=== PATIENT | female | born 2000 | race Caucasian/White ===

== ENCOUNTER 2018-12-30 23:25 | Inpatient (IN) ==
[2018-12-31] MEDS ORDERED: MEPERIDINE 50 MG/1 ML VIAL IV PRN (00:21)
[2018-12-31] MEDS ORDERED: ONDANSETRON 4 MG/2 ML VIAL IV PRN (00:21)
[2018-12-31] MEDS ORDERED: LACTATED RINGERS 1,000 ML IV SCH ×2 (00:30→13:00)
[2018-12-31 00:42] LABS: Basophils % 0.3 % (0.0-0.8); Eosinophils # 0.1 10*3/uL (0.0-0.87); Eosinophils % 0.5 % (0.00-10.9); Hematocrit 32.4 VOL% (35.7-47.0); Hemoglobin 10.1 GM/DL (12.0-16.0); Immature Granulocytes % 0.8 %; Lymphocytes # 2.5 10*3/uL (1.4-4.0); Lymphocytes % 20.9 % (21.3-54.2); Mean Corpuscular HGB Conc 31.2 GM/DL (32-36); Mean Corpuscular Volume 79.8 FL (87-102); Mean Platelet Volume 10.8 FL (9.6-12.0); Monocytes % 6.8 % (1.7-12.7); NRBC # 0.02 10*3/uL; Neutrophils % 70.7 % (38.7-73.9); Platelet Count 268 T/CUMM (130-400); Red Blood Count 4.06 MC/CUMM (3.8-5.5); Red Cell Distribution Width 15.2 % (9.3-17.3)
[2018-12-31 01:08] LABS: Alanine Aminotransferase 67 U/L (13-56); Albumin 2.7 G/DL (3.4-5.0); Alkaline Phosphatase 208 U/L (45-117); Aspartate Amino Transferase 56 U/L (0-37); Bilirubin,Total < 0.39 MG/DL (0.2-1.0); Blood Urea Nitrogen 10 MG/DL (7-18); Glucose 83 MG/DL (74-106); Osmolality,Calculated 274.5 MOS/KG (273-304); Total Protein 7.3 G/DL (6.4-8.3)
[2018-12-31] MEDS ORDERED: NALOXONE 0.4 MG/ML VIAL IV PRN (12:37)
[2018-12-31] MEDS ORDERED: LACTATED RINGERS 1,000 ML IV ONE (12:37)
[2018-12-31] MEDS ORDERED: CITRIC ACID/SODIUM CITRATE 30 ML UDCUP PO ONE (12:37)
[2018-12-31] MEDS ORDERED: diphenhydrAMINE 50 MG/1 ML VIAL IV PRN ×2 (12:37)
[2018-12-31] MEDS ORDERED: hydrOXYzine HCL 25 MG/1 ML VIAL IM PRN (12:37)
[2018-12-31] MEDS ORDERED: ePHEDrine 50 MG/ML AMP IV PRN ×2 (12:37)
[2018-12-31] MEDS ORDERED: PROMETHAZINE 25 MG/1 ML VIAL IM ONE (12:37)
[2018-12-31] MEDS ORDERED: FAMOTIDINE 20 MG/2 ML VIAL IV ONE (12:37)
[2018-12-31] MEDS ORDERED: OXYTOCIN/LR 20 UNIT/1,000 ML BAG IV SCH (14:00)
[2018-12-31 15:51] LABS: Apearance,Urine CLEAR (Clear); Bilirubin,Urine Negative (Negative); Blood, Urine Negative (Negative); Glucose,Urine (UA) Negative (Negative); Ketones,Urine 20 mg/dL (Negative); Mucus,Urine Occasional /LPF (Occasional); Nitrite,Urine Negative (Negative); Protein,Urine Negative; RBC,Urine 1 /HPF (0-4); Squamous Epithelial Cell,Urine Occasional /HPF (0-10); Transitional Epi Cells,Urine Occasional /HPF (<1); Urine Color Yellow (Yellow); Urine Specific Gravity 1.024 (1.001-1.035); Urine Urobilinogen < 2.0 EU/DL (0.2-1.0); WBC,Urine 1 /HPF (0-6)
[2018-12-31] MEDS: fentaNYL 2 MCG/ROPIV 0.2% EPID 100 ML EPIDURAL SCH (20:42)
[2019-01-01] MEDS ORDERED: ACETAMINOPHEN 500 MG TABLET PO ONE (00:58)
[2019-01-01] MEDS ORDERED: fentaNYL 100 MCG/2 ML VIAL ONE (02:51)
[2019-01-01] MEDS: fentaNYL 2 MCG/ROPIV 0.2% EPID 100 ML EPIDURAL SCH (03:06)
[2019-01-01] MEDS ORDERED: AMPICILLIN 2,000 MG VIAL ONE (04:20)
[2019-01-01] MEDS ORDERED: SODIUM CHLORIDE 0.9% 100 ML IV ONE (04:20)
[2019-01-01] MEDS ORDERED: AMPICILLIN INJ 2,000 MG in SODIUM CHLORIDE 0.9% 100 ML IV ONE (04:30)
[2019-01-01] MEDS ORDERED: TERBUTALINE 1 MG/1 ML VIAL SUBCUT ONE (04:38)
[2019-01-01] MEDS ORDERED: OXYTOCIN 10 UNIT/ML VIAL IM ONE (06:44)
[2019-01-01] MEDS ORDERED: OXYTOCIN/LR 30 UNIT/1,000 ML BAG IV ONE (06:44)
[2019-01-01] MEDS ORDERED: CITRIC ACID/SODIUM CITRATE 30 ML UDCUP PO ONE (07:00)
[2019-01-01] MEDS ORDERED: FAMOTIDINE 20 MG/2 ML VIAL IV ONE (07:00)
[2019-01-01] MEDS ORDERED: ceFAZolin 2,000 MG in PREMIX 1 EACH IV ONE (07:00)
[2019-01-01] MEDS ORDERED: miSOPROStol 200 MCG TABLET ONE (07:17)
[2019-01-01] MEDS ORDERED: OXYTOCIN/LR 20 UNIT/1,000 ML BAG IV ONE ×2 (07:17→09:16)
[2019-01-01] MEDS ORDERED: TRANEXAMIC ACID 1,000 MG/10 ML VIAL ONE (07:17)
[2019-01-01] MEDS ORDERED: METHYLERGONOVINE 0.2 MG/1 ML AMP ONE (07:18)
[2019-01-01] MEDS ORDERED: CARBOPROST TROMETHAMINE 250 MCG/ML AMP IM ONE (07:18)
[2019-01-01] MEDS ORDERED: AMPICILLIN INJ 1,000 MG in SODIUM CHLORIDE 0.9% 100 ML IV SCH (08:30)
[2019-01-01] MEDS ORDERED: ACETAMINOPHEN 325 MG TABLET PO PRN (09:16)
[2019-01-01] MEDS ORDERED: IBUPROFEN 800 MG TABLET PO PRN (09:16)
[2019-01-01] MEDS ORDERED: ONDANSETRON 4 MG/2 ML VIAL IV PRN ×2 (09:16→09:22)
[2019-01-01] MEDS ORDERED: MAGNESIUM HYDROXIDE SUSP 30 ML UDCUP PO PRN (09:16)
[2019-01-01] MEDS ORDERED: RHO(D) IMMUNE GLOBULIN 300 MCG SYRINGE IM ONE (09:16)
[2019-01-01] MEDS ORDERED: diphenhydrAMINE 50 MG/1 ML VIAL IV PRN (09:22)
[2019-01-01] MEDS ORDERED: hydrOXYzine HCL 25 MG/1 ML VIAL IM PRN (09:22)
[2019-01-01] MEDS ORDERED: LACTATED RINGERS 1,000 ML IV SCH ×2 (09:30)
[2019-01-01] MEDS ORDERED: ceFAZolin 1,000 MG in SYRINGE 1 EACH IV SCH (09:30)
[2019-01-01] MEDS ORDERED: SODIUM CHLORIDE 0.9% 1,000 ML IV SCH (09:30)
[2019-01-01] MEDS: HYDROmorphone 2 MG/1 ML VIAL IV PRN ×2 (09:37→17:18)
[2019-01-01] MEDS ORDERED: MORPHINE 10 MG/10 ML VIAL ONE (10:53)
[2019-01-01] MEDS ORDERED: SODIUM BICARBONATE 2.4 MEQ/5 ML VIAL ONE (10:53)
[2019-01-01] MEDS ORDERED: ONDANSETRON 4 MG/2 ML VIAL ONE (10:53)
[2019-01-01] MEDS ORDERED: LACTATED RINGERS 2,000 ML IV ONE (10:54)
[2019-01-01] MEDS ORDERED: LIDOCAINE MPF 2% /EPI 20 ML VIAL ONE (10:54)
[2019-01-01] MEDS ORDERED: PHENYLEPHRINE 1 MG/10 ML SYRINGE IV ONE (10:54)
[2019-01-01] MEDS ORDERED: SODIUM CHLORIDE 0.9% 50 ML IV ONE (16:29)
[2019-01-01] MEDS: ceFAZolin 1,000 MG in SYRINGE 1 EACH IV SCH (16:32)
[2019-01-01 16:45] LABS: Red Blood Count 3.78 MC/CUMM (3.8-5.5); White Blood Count 22.5 T/CUMM (4-12)
[2019-01-01 16:46] LABS: Basophils % 0.2 % (0.0-0.8); Hematocrit 30.2 VOL% (35.7-47.0); Hemoglobin 9.4 GM/DL (12.0-16.0); Lymphocytes % 4.7 % (21.3-54.2); Mean Corpuscular HGB Conc 31.1 GM/DL (32-36); Mean Corpuscular Volume 79.9 FL (87-102); Mean Platelet Volume 11.3 FL (9.6-12.0); Monocytes % 5.3 % (1.7-12.7); Neutrophils % 89.1 % (38.7-73.9); Platelet Count 220 T/CUMM (130-400); Red Cell Distribution Width 15.5 % (9.3-17.3)
[2019-01-01 16:47] LABS: Basophils # 0.1 10*3/uL (0.0-0.2); Immature Granulocytes % 0.7 %; Lymphocytes # 1.1 10*3/uL (1.4-4.0)
[2019-01-01 17:11] LABS: Band Neutrophils 7 % (0-10); Hypochromasia 1+; Lymphocytes 4 % (20-55); Segmented Neutrophils 82 % (50-85); Total Cells Counted 100
[2019-01-01 17:12] LABS: Anisocytosis 1+; Platelet Estimate Adequate
[2019-01-01] MEDS: FERROUS SULFATE 325 MG TABLET PO SCH (20:40)
[2019-01-01] MEDS: DOCUSATE SODIUM 100 MG CAPSULE PO SCH (20:40)
[2019-01-02] MEDS: ceFAZolin 1,000 MG in SYRINGE 1 EACH IV SCH (00:14)
[2019-01-02] MEDS: IBUPROFEN 800 MG TABLET PO PRN ×3 (03:45→17:59)
[2019-01-02] MEDS: SIMETHICONE CHEW 80 MG TABLET PO PRN ×2 (04:16→21:12)
[2019-01-02 05:32] LABS: Basophils # 0.1 10*3/uL (0.0-0.2); Basophils % 0.3 % (0.0-0.8); Eosinophils # 0.1 10*3/uL (0.0-0.87); Eosinophils % 0.5 % (0.00-10.9); Hematocrit 26.1 VOL% (35.7-47.0); Hemoglobin 8.2 GM/DL (12.0-16.0); Immature Granulocytes % 0.8 %; Immature Granulocytes Absolute 0.13 #; Lymphocytes # 1.8 10*3/uL (1.4-4.0); Lymphocytes % 10.7 % (21.3-54.2); Mean Corpuscular HGB Conc 31.4 GM/DL (32-36); Mean Corpuscular Volume 79.6 FL (87-102); Monocytes % 7.6 % (1.7-12.7); Neutrophils % 80.1 % (38.7-73.9); Platelet Count 207 T/CUMM (130-400); Red Blood Count 3.28 MC/CUMM (3.8-5.5); Red Cell Distribution Width 15.5 % (9.3-17.3); White Blood Count 17.1 T/CUMM (4-12)
[2019-01-02 05:53] LABS: Platelet Estimate Decreased; Polychromasia Few
[2019-01-02] MEDS: MULTIVITAMIN (PRENATAL) TABLET PO SCH (08:29)
[2019-01-02] MEDS: FERROUS SULFATE 325 MG TABLET PO SCH ×2 (08:29→21:11)
[2019-01-02] MEDS: METOCLOPRAMIDE 10 MG TABLET PO SCH ×2 (08:29→16:04)
[2019-01-02] MEDS: DOCUSATE SODIUM 100 MG CAPSULE PO SCH ×2 (08:29→21:11)
[2019-01-02] MEDS: MAGNESIUM HYDROXIDE SUSP 30 ML UDCUP PO SCH ×2 (08:31→21:12)
[2019-01-02] MEDS: FUROSEMIDE 40 MG/4 ML VIAL IV SCH ×2 (12:20→17:55)
[2019-01-03] MEDS: METOCLOPRAMIDE 10 MG TABLET PO SCH ×2 (00:14→09:02)
[2019-01-03] MEDS: IBUPROFEN 800 MG TABLET PO PRN ×2 (00:14→05:53)
[2019-01-03] MEDS: FUROSEMIDE 40 MG/4 ML VIAL IV SCH ×2 (00:22→05:55)
[2019-01-03] MEDS: DOCUSATE SODIUM 100 MG CAPSULE PO SCH (09:02)
[2019-01-03] MEDS: FERROUS SULFATE 325 MG TABLET PO SCH (09:03)
[2019-01-03] MEDS: MULTIVITAMIN (PRENATAL) TABLET PO SCH (09:03)
[2019-01-03] MEDS: MAGNESIUM HYDROXIDE SUSP 30 ML UDCUP PO SCH (09:15)
[2019-01-03] MEDS ORDERED: FUROSEMIDE 40 MG/4 ML VIAL IV ONE (12:00)
[2019-01-03 13:51] VITALS: BP 133/67
== END 2019-01-03 16:00 | disposition home or self-care (01) | DRG 787 ==
LOC: N.LDOUT 23:25 → N.LD 12-31 00:06 → N.OB 01-01 12:20
PROVIDERS: ADMIT Obstetrics & Gynecology; ATTEND Obstetrics & Gynecology
PROC: LDCSECT (ICD-10-PCS; 2019-01-01 07:30)

== ENCOUNTER 2021-04-04 04:09 | Inpatient (IN) ==
[2021-04-04 04:45] LABS: Bilirubin,Urine Negative (Negative); Blood, Urine Negative (Negative); Glucose,Urine (UA) Negative (Negative); Ketones,Urine Negative (Negative); Mucus,Urine Occasional /LPF (Occasional); Nitrite,Urine Negative (Negative); Protein,Urine Negative; RBC,Urine <1 /HPF (0-4); Squamous Epithelial Cell,Urine Occasional /HPF (0-10); Urine Appearance CLEAR (Clear); Urine Color Yellow (Yellow); Urine Specific Gravity 1.018 (1.001-1.035); Urine Urobilinogen < 2.0 EU/DL (<2.0)
[2021-04-04] MEDS ORDERED: BUTORPHANOL 2 MG/ML VIAL IV PRN (07:20)
[2021-04-04] MEDS ORDERED: MEPERIDINE 50 MG/1 ML VIAL IV PRN (07:20)
[2021-04-04] MEDS ORDERED: LIDOCAINE 1% 50 ML VIAL MISC INJ ONE (07:20)
[2021-04-04] MEDS ORDERED: ONDANSETRON 4 MG/2 ML VIAL IV PRN (07:20)
[2021-04-04] MEDS ORDERED: FAMOTIDINE 20 MG/2 ML VIAL IV ONE (07:25)
[2021-04-04] MEDS ORDERED: LACTATED RINGERS 1,000 ML IV ONE (07:25)
[2021-04-04] MEDS ORDERED: NALOXONE 0.4 MG/ML VIAL IV PRN (07:25)
[2021-04-04] MEDS ORDERED: CITRIC ACID/SODIUM CITRATE 30 ML UDCUP PO ONE (07:25)
[2021-04-04] MEDS ORDERED: hydrOXYzine HCL 25 MG/1 ML VIAL IM PRN (07:25)
[2021-04-04] MEDS ORDERED: diphenhydrAMINE 50 MG/1 ML VIAL IV PRN ×2 (07:25)
[2021-04-04] MEDS ORDERED: PROMETHAZINE 25 MG/1 ML VIAL IM ONE (07:25)
[2021-04-04] MEDS ORDERED: ePHEDrine 50 MG/ML VIAL IV PRN (07:25)
[2021-04-04 08:09] LABS: Basophils % 0.2 % (0.0-0.8); Eosinophils % 0.1 % (0.00-10.9); Hematocrit 34.7 VOL% (35.7-47.0); Hemoglobin 10.3 GM/DL (12.0-16.0); Lymphocytes # 1.1 10*3/uL (1.4-4.0); Lymphocytes % 10.4 % (21.3-54.2); Mean Corpuscular HGB Conc 29.7 GM/DL (32-36); Mean Corpuscular Volume 75.3 FL (87-102); Mean Platelet Volume 10.9 FL (9.6-12.0); Monocytes % 4.3 % (1.7-12.7); Platelet Count 295 T/CUMM (130-400); Red Blood Count 4.61 MC/CUMM (3.8-5.5); Red Cell Distribution Width 16.2 % (9.3-17.3); White Blood Count 10.3 T/CUMM (4-12)
[2021-04-04] MEDS: LACTATED RINGERS 1,000 ML IV SCH ×2 (08:26→14:23)
[2021-04-04 08:31] LABS: Albumin 2.6 G/DL (3.4-5.0); Bilirubin,Total 0.5 MG/DL (0.20-1.00); Calcium 8.7 MG/DL (8.5-10.1); Osmolality,Calculated 273.7 MOS/KG (273-304); Potassium 4.1 MMOL/L (3.5-5.1); Total Protein 7.4 G/DL (6.4-8.2)
[2021-04-04] MEDS: fentaNYL 2 MCG/ROPIV 0.2% EPID 100 ML EPIDURAL SCH ×2 (08:52→16:25)
[2021-04-04 10:12] LABS: Bacteria,Urine Occasional /HPF (Few); Bilirubin,Urine Negative (Negative); Blood, Urine Negative (Negative); Glucose,Urine (UA) Negative (Negative); Ketones,Urine 5 mg/dL (Negative); Mucus,Urine Occasional /LPF (Occasional); Nitrite,Urine Negative (Negative); Protein,Urine 30 MG/DL; RBC,Urine 1 /HPF (0-4); Squamous Epithelial Cell,Urine Occasional /HPF (0-10); Urine Appearance CLEAR (Clear); Urine Color Yellow (Yellow); Urine Specific Gravity 1.023 (1.001-1.035); Urine Urobilinogen < 2.0 EU/DL (<2.0)
[2021-04-04] MEDS ORDERED: diphenhydrAMINE 50 MG/1 ML VIAL IV ONE (13:16)
[2021-04-04] MEDS ORDERED: TRANEXAMIC ACID 1,000 MG/10 ML VIAL ONE (17:12)
[2021-04-04] MEDS ORDERED: miSOPROStoL 200 MCG TABLET ONE (17:12)
[2021-04-04] MEDS ORDERED: SODIUM CHLORIDE 0.9% 0 ML IV ONE (17:12)
[2021-04-04] MEDS ORDERED: OXYTOCIN/LR 20 UNIT/1,000 ML BAG IV ONE ×2 (17:12→18:46)
[2021-04-04] MEDS ORDERED: METHYLERGONOVINE 0.2 MG/1 ML AMP ONE (17:13)
[2021-04-04] MEDS ORDERED: CARBOPROST TROMETHAMINE 250 MCG/ML AMP IM ONE (17:13)
[2021-04-04] MEDS ORDERED: ceFAZolin 3,000 MG in SYRINGE 1 EACH IV ONE (17:14)
[2021-04-04] MEDS ORDERED: LACTATED RINGERS 1,000 ML IV SCH ×2 (17:30→19:00)
[2021-04-04] MEDS ORDERED: ONDANSETRON 4 MG/2 ML VIAL ONE ×2 (17:48→18:53)
[2021-04-04] MEDS ORDERED: LIDOCAINE MPF 2% /EPI 20 ML VIAL ONE (17:48)
[2021-04-04 18:34] LABS: Cord Venous Blood HCO3 20.5 MMOL/L; Cord Venous Blood PCO2 45.6 MMHG; Cord Venous Blood PO2 19.2
[2021-04-04] MEDS ORDERED: ACETAMINOPHEN 325 MG TABLET PO PRN (18:46)
[2021-04-04] MEDS ORDERED: RHO(D) IMMUNE GLOBULIN 300 MCG SYRINGE IM ONE (18:46)
[2021-04-04] MEDS ORDERED: oxyCODONE/ACETAMINOPHEN 5-325 MG TABLET PO PRN (18:46)
[2021-04-04] MEDS ORDERED: KETOROLAC 30 MG/1 ML VIAL ONE (18:53)
[2021-04-04] MEDS ORDERED: HYDROmorphone 2 MG/1 ML VIAL IV PRN (19:02)
[2021-04-04] MEDS ORDERED: ONDANSETRON 4 MG/2 ML VIAL IV ONE (22:22)
[2021-04-04] MEDS: DOCUSATE SODIUM 100 MG CAPSULE PO SCH (22:26)
[2021-04-04] MEDS: oxyCODONE/ACETAMINOPHEN 5-325 MG TABLET PO PRN (22:26)
[2021-04-05] MEDS: SIMETHICONE CHEW 80 MG TABLET PO PRN ×2 (00:11→21:06)
[2021-04-05] MEDS: ACETAMINOPHEN 500 MG TABLET PO SCH ×2 (00:31→05:15)
[2021-04-05] MEDS: KETOROLAC 30 MG/1 ML VIAL IV SCH ×4 (00:42→12:29)
[2021-04-05] MEDS: METHYLERGONOVINE 0.2 MG TABLET PO SCH ×3 (00:56→12:30)
[2021-04-05 02:09] LABS: Basophils % 0.1 % (0.0-0.8); Hematocrit 30.5 VOL% (35.7-47.0); Hemoglobin 9.2 GM/DL (12.0-16.0); Immature Granulocytes % 0.9 %; Immature Granulocytes Absolute 0.13 #; Lymphocytes # 1.4 10*3/uL (1.4-4.0); Lymphocytes % 9.8 % (21.3-54.2); Mean Corpuscular HGB Conc 30.2 GM/DL (32-36); Mean Corpuscular Volume 74.6 FL (87-102); Mean Platelet Volume 10.5 FL (9.6-12.0); Monocytes % 6.3 % (1.7-12.7); Neutrophils % 82.9 % (38.7-73.9); Platelet Count 209 T/CUMM (130-400); Red Blood Count 4.09 MC/CUMM (3.8-5.5); Red Cell Distribution Width 16.2 % (9.3-17.3); White Blood Count 14.4 T/CUMM (4-12)
[2021-04-05] MEDS: oxyCODONE/ACETAMINOPHEN 5-325 MG TABLET PO PRN ×2 (05:16→21:15)
[2021-04-05] MEDS: MULTIVITAMIN (PRENATAL) TABLET PO SCH (09:08)
[2021-04-05] MEDS: DOCUSATE SODIUM 100 MG CAPSULE PO SCH ×2 (09:08→21:06)
[2021-04-05] MEDS: MAGNESIUM HYDROXIDE SUSP 30 ML UDCUP PO PRN ×2 (09:08→21:06)
[2021-04-05 10:49] LABS: Basophils % 0.2 % (0.0-0.8); Eosinophils % 0.1 % (0.00-10.9); Hematocrit 32.5 VOL% (35.7-47.0); Hemoglobin 9.9 GM/DL (12.0-16.0); Immature Granulocytes % 0.5 %; Immature Granulocytes Absolute 0.07 #; Lymphocytes # 1.7 10*3/uL (1.4-4.0); Lymphocytes % 12.4 % (21.3-54.2); Mean Corpuscular HGB Conc 30.5 GM/DL (32-36); Mean Platelet Volume 10.7 FL (9.6-12.0); Monocytes % 7.4 % (1.7-12.7); Neutrophils % 79.4 % (38.7-73.9); Platelet Count 238 T/CUMM (130-400); Red Blood Count 4.39 MC/CUMM (3.8-5.5); Red Cell Distribution Width 16.3 % (9.3-17.3); White Blood Count 13.7 T/CUMM (4-12)
[2021-04-05] MEDS: IBUPROFEN 800 MG TABLET PO PRN (21:06)
[2021-04-06] MEDS: oxyCODONE/ACETAMINOPHEN 5-325 MG TABLET PO PRN ×2 (01:59→06:03)
[2021-04-06] MEDS: IBUPROFEN 800 MG TABLET PO PRN (04:45)
[2021-04-06 07:26] VITALS: BP 114/51
[2021-04-06] MEDS: MULTIVITAMIN (PRENATAL) TABLET PO SCH (08:41)
[2021-04-06] MEDS: DOCUSATE SODIUM 100 MG CAPSULE PO SCH (08:41)
== END 2021-04-06 09:10 | disposition home or self-care (01) | DRG 788 ==
LOC: N.LD 04:09 → N.OB 21:55
PROVIDERS: ADMIT Obstetrics & Gynecology; ATTEND Obstetrics & Gynecology
PROC: LDCSECT (ICD-10-PCS; 2021-04-04 18:00)